=== PATIENT | male | born 1990 | race Caucasian/White ===

== ENCOUNTER 2024-04-01 13:08 | Emergency (ER) | payer OTHER, SELFPAY ==
--- NOTE | ~2024-04-01 | XR_ITS ---
EXAMINATION: XR chest 2V 04/01/2024 15:03 INDICATION: Chest pain and hypertension. PROCEDURE: 2 view chest COMPARISON: No prior studies for comparison. FINDINGS: The lungs are clear. The cardiomediastinal silhouette is within normal limits. There are no pleural effusions. There is no pneumothorax suspected. IMPRESSION: 1: NO ACUTE CARDIOPULMONARY DISEASE. Reviewed, dictated and finalized at location B.
--- NOTE | 2024-04-01 13:09 | ECG_ITS ---
Test Date: 2024-04-01 13:19:25 Measurements Intervals [place] Rate: 115 P: 78 MT: 84 QRS: 71 QRSD: 89 T: 53 QT: 334 QTc: 463 Interpretive Statements SINUS TACHYCARDIA WITH SHORT MT INTERVAL BORDERLINE ST-T WAVE ABNORMALITY- INF/LAT LEADS BASELINE ARTIFACT- I, II, AVR, AVL ABNORMAL ECG No previous ECG available for comparison Electronically Signed On 04-01-2024 14:08:04 CDT by Antonio Joy D.O.
[2024-04-01 13:11] VITALS: BP 169/105; PULSE 109; RESP 26; TEMP 36.7; O2SAT 100
[2024-04-01 13:28] VITALS: PULSE 99; RESP 22; O2SAT 100
[2024-04-01 13:30] VITALS: PULSE 100; PULSE 98; RESP 17; O2SAT 99
[2024-04-01 13:30] LABS: Basophils Percent Auto 0.5 % (0.2-1.2); Eosinophils Absolute Auto 0.1 K/mm3 (0-0.3); Eosinophils Percent Auto 0.8 % (0-4.4); Hematocrit 45.7 % (42.0-52.0); Hemoglobin 15.5 g/dL (14.0-18.0); Immature Granulocyte Absolute 0.02 K/mm3 (0.00-0.031); Immature Granulocyte Percent A 0.3 % (0-0.5); Lymphocytes Absolute Auto 1.68 K/mm3 (0.9-3.2); Lymphocytes Percent Auto 25.6 % (18.3-44.2); Mean Corpuscular HGB Conc 33.9 g/dl (32-36); Mean Corpuscular Hemoglobin 29.7 pg (26-34); Mean Corpuscular Volume 87.5 fl (80-100); Mean Platelet Volume 10.5 fl (7.4-10.4); Monocytes Absolute Auto 0.5 K/mm3 (0.1-0.6); Monocytes Percent Auto 7.3 % (2.6-8.5); Neutrophils Absolute Auto 4.3 K/mm3 (1.3-6.7); Neutrophils Percent Auto 65.5 % (45.5-73.1); Platelet Count Result 210 k/mm3 (150-375); Red Blood Count 5.22 M/mm3 (4.6-6.20); Red Cell Distribution Width 13.7 % (11.5-14.5); White Blood Count 6.6 K/mm3 (4.5-10.0)
[2024-04-01 13:31] VITALS: BP 177/110; PULSE 96; RESP 16; O2SAT 100
[2024-04-01 13:42] LABS: Alanine Aminotransferase 104 U/L (6-50); Alkaline Phosphatase 190 U/L (38-126); Anion Gap 18 mmol/L (4-12); Aspartate Amino Transferase 252 U/L (17-59); Bilirubin,Total 2.4 mg/dL (0.2-1.3); Blood Urea Nitrogen 9 mg/dL (9-20); Calcium 9.2 mg/dL (8.4-10.2); Carbon Dioxide 22 mmol/L (22-30); Chloride 97 mmol/L (98-107); Estimated CRCL calculation 127 ml/min; Estimated Glomerular Filt Rate > 60; Glucose 111 mg/dL (65-110); Lipase 74 U/L (23-300); Potassium 3.9 mmol/L (3.4-5.0); Sodium 137 mmol/L (137-145)
--- NOTE | 2024-04-01 13:45 | ED.CHESTPAIN ---
HPI - Chest Pain General Chief Complaint: Chest Pain Stated Complaint: chest pain Time Seen by Provider: 04/01/24 13:27 History of Present Illness HPI narrative: 33-year-old male presents emergency department for evaluation for suspected panic attack. Patient does have a history of panic attacks is be his 4th attack in approximately 1 year. Patient does take Effexor. Patient states he has also been drinking more alcohol lately. Patient states he does drink daily, does drink mixed drinks in the evening and has been drinking more during the day. Patient denies any prior cardiac history and did have a recent negative stress test. Related Data Home Medications Medication Instructions Recorded Confirmed Effexor 04/01/24 chlordiazepoxide HCl 10 mg capsule 10 mg PO TID PRN Alcohol Withdrawal 04/01/24 04/01/24 esomeprazole magnesium 40 mg 40 mg PO DAILY 04/01/24 04/01/24 capsule,delayed release (Nexium) Allergies Allergy/AdvReac Type Severity Reaction Status Date / Time No Known Allergies Allergy Verified 04/01/24 13:17 Review of Systems Review of Systems: All systems reviewed & are unremarkable except as noted in HPI and below Exam Narrative: APPEARANCE: Well appearing, no pain, no distress, well-nourished. HEAD: normocephalic, atraumatic. EYES: PERRLA/EOMI, conjunctivae clear. NOSE: Normal no drainage EARS:TMS clear with good light reflex. THROAT: Pharynx clear, no exudate. NECK: Supple. No adenopathy, no masses. RESPIRATORY: Airway patent, respirations nonlabored. Clear to auscultation bilaterally, no rales, rhonchi, wheezing. CARDIOVASCULAR: Regular rate and rhythm without murmurs rubs or gallops. ABDOMINAL: Soft, nontender, nondistended, normal bowel sounds MUSCULOSKELETAL: Moves all extremities. Strength/ROM intact, No edema, No calf tenderness. NEURO: Alert. Cranial nerves II through XII intact. Grossly intact SKIN: Warm, dry. Normal Color PSYCHIATRIC: Tearful affect Course Course Emergency Course: Patient family are comfortable with the plan for discharge and close follow-up. Vital Signs Vital signs: Vital Signs Temperature 98.1 F 04/01/24 13:11 Pulse Rate 109 H 04/01/24 13:11 Respiratory Rate 26 H 04/01/24 13:11 Blood Pressure 169/105 H 04/01/24 13:11 Pulse Oximetry 100 04/01/24 13:11 Oxygen Delivery Room Air 04/01/24 13:11 Temperature 98.1 F 04/01/24 13:11 Pulse Rate 82 04/01/24 14:01 Respiratory Rate 20 04/01/24 14:01 Blood Pressure 181/106 H 04/01/24 14:01 Pulse Oximetry 100 04/01/24 14:01 Oxygen Delivery Room Air 04/01/24 13:11 MDM - Chest Pain MDM Narrative Medical decision making narrative: 33-year-old male presents to the emergency department for evaluation for a panic attack. Patient does admit to heavy alcohol consumption. Patient is afebrile with no ptosis and a stable hemoglobin of 15.5. INR 0.9. Patient does have acutely elevated T bili AST ALT alk-phos. Lipase is not elevated. Patient does have follow-up scheduled with rehab later today. Suspect that the liver enzymes were secondary to his alcohol abuse, patient has no reproducible right upper quadrant tenderness to palpation. Patient family were comfortable the plan for discharge and close follow-up. Patient was strongly encouraged to decrease his alcohol consumption. Patient was provided a small script for Ativan for acute anxiety. Lab Data Attestation: I reviewed the patient's lab results. 04/01/24 13:22 04/01/24 13:22 Labs: Lab Results 04/01/24 Range/Units 13:22 WBC 6.6 (4.5-10.0) K/mm3 RBC 5.22 (4.6-6.20) M/mm3 Hgb 15.5 (14.0-18.0) g/dL Hct 45.7 (42.0-52.0) % MCV 87.5 (80-100) fl MCH 29.7 (26-34) pg MCHC 33.9 (32-36) g/dl RDW 13.7 (11.5-14.5) % Plt Count 210 (150-375) k/mm3 MPV 10.5 H (7.4-10.4) fl Immature Gran % (Auto) 0.3 (0-0.5) % Neut % (Auto) 65.5 (45.5-73.1) % Lymph % (Auto) 25.6 (18.3
[2024-04-01] MEDS: LORazepam INJ (*CRX) 2 MG/ML VIAL 1 MG IV PUSH (13:47)
[2024-04-01 13:51] LABS: INR 0.9; Partial Thromboplastin Time 24.1 Seconds (22.3-36.8); Prothrombin Time 12.7 Seconds (11.1-14.7)
[2024-04-01 13:53] LABS: Troponin I < 0.012 ng/mL (0.000-0.034)
[2024-04-01 14:01] VITALS: BP 181/106; PULSE 82; RESP 20; O2SAT 100
--- NOTE | 2024-04-01 14:28 | PCCCNOTE ---
1428-Spoke with pt and Lisette the spouse at Bedside. Directed much of the conversation to the due to the pt being unable to keep his eyes open. Did share local Substance use/treatment/Rehab resources, AA meeting locations and placed a call to [facility] to outreach the pt. An [employer] outside industrial sales representative is being dispatched to the hospital for f/u on 04/02/24.-casey.
== END 2024-04-01 16:14 | disposition home or self-care (01) ==
PROVIDERS: Emergency Provider Emergency Medicine
DX: F10.10 Alcohol abuse, uncomplicated (principal); F41.9 Anxiety disorder, unspecified
CPT/HCPCS: 36415; 71046; 80053; 83690; 84484; 85025; 85610; 85730; 93005; 96374; 99284; J2060